=== PATIENT | female | born 1955 | race Caucasian/White ===

== ENCOUNTER 2018-02-03 12:15 | Observation (INO) ==
[2018-02-03] MEDS ORDERED: ALBUTEROL 2.5mg/3ml (0.083%) NEB AEROSOL PRN (12:51)
--- NOTE | 2018-02-03 12:55 | Family Practice History&Phys ---
History of Present Illness Chief complaint: Chest pain shortness of breath HPI: Then having an exacerbation of her COPD for about three weeks. She was treated with Zithromax initially and then recently with Levaquin for seven days and Solu -Medrol times one. She is only had two doses of Levaquin. She reports last night she started having chest pain that is feels like a heavyweight sitting on her chest. She has never had a heart attack before. She has had this feeling before when she had pneumonia in the past. EKG was done at the clinic and it was normal sinus rhythm with no concerning findings. Exam - Constitutional no acute distress - Routine HEENT Exam Head: Present: normocephalic Eye: Present: PERRL ENT: Present: mucous membranes moist - Routine Neck Exam Present: supple - Routine Chest/Breast/Axilla Exam Comments: Poor air movement posteriorly. She is not in respiratory distress. She has a normal oxygen saturation at 96%. - Routine Respiratory Exam Comments: Poor air movement. No wheezing. Not in respiratory distress. - Routine Cardiovascular Exam Present: RRR - Routine Abdominal Exam Present: soft, non distended - Routine Extremities Exam Present: no edema Results - Labs All other labs normal. Assessment and Plan - Assessment and Plan (1) COPD with acute exacerbation Status: Acute (2) Acute bronchitis Status: Acute Will start on IV Solu-Medrol, oral Levaquin continued. Start Zithromax. We use Duoneb nebulized. Observe for 24 hours. IV fluids.
--- OUTSIDE RECORDS SUMMARY | 2018-02-03 13:58 | External Medical Summary | Clinical Summary ---
:1955 Author Organization [facility] Address [address] [place] [address] Care Team Providers Name Role Phone Unassigned, None Primary Care Provider Unavailable Allergies No Known Allergies Current Medications Prescription Sig. Disp. Refills Start Date End Date Status naproxen (ANAPROX) 220 MG Take 220 mg by Active tablet mouth 2 (two) times daily with meals. Active Problems No known active problems Social History Tobacco Use Types Packs/Day Years Used Date Current Every Day Smoker Cigarettes 1 Sex Assigned at Date Recorded Not on file Last Filed Vital Signs Vital Sign Reading Time Taken Blood Pressure 118/78 09/05/2013 10:12 AM [facility] Pulse - - Temperature - - Respiratory Rate - - Oxygen Saturation - - Inhaled Oxygen Concentration - - Weight 52.2 kg (115 lb) 09/05/2013 10:12 AM [facility] Height 165.1 cm (5' 5") 09/05/2013 10:12 AM [facility] Body Mass Index 19.14 09/05/2013 10:12 AM [facility] Plan of Treatment Health Maintenance Due Date Last Done Comments Hepatitis C Screening 1955 DTaP,Tdap,and Td Vaccines (1 - Tdap) 1973 CERVICAL CANCER SCREENING 1975 Breast Cancer Screening-Mammogram 2004 Colon Cancer Screening 2004 Zoster Recombinant Vaccine (RZV,Shingrix) (1 of 2 - [facility] 2004 2 Dose Standard) Results Not on filefrom Last 3 Months
[2018-02-03 14:11] VITALS: BMI 20.1
[2018-02-03] MEDS: D5-1/2NS 1,000 ML IV SCH ×2 (14:46→23:55)
--- NOTE | 2018-02-03 17:17 | XRay Report ---
INDICATION: sob PROCEDURE: CHEST 2-VIEWS UPRIGHT (PA & LAT) Encounter: Initial COMPARISON: None FINDINGS: 1.6 cm calcified granuloma in the anterior right upper lobe. Lungs are otherwise clear. Hyperinflation. There is no pleural effusion or pneumothorax. Surgical clips in both axillary regions. Calcified right hilar node. The heart size, mediastinal contours and pulmonary vascularity are within normal limits. There is no significant skeletal abnormality. IMPRESSION: No acute cardiopulmonary disease. Evidence of prior granulomatous disease and COPD. .
[2018-02-03] MEDS: ALBUTEROL/IPRATROPIUM 2.5mg-0.5mg/3ml NEB AEROSOL SCH ×2 (19:37→20:49)
[2018-02-03] MEDS: METHYLPREDNISOLONE SOD SUCC 125mg/2ml INJECTION IVP SCH (22:47)
[2018-02-03] MEDS ORDERED: ACETAMINOPHEN 325 MG TABLET PO PRN (23:49)
[2018-02-04] MEDS ORDERED: LORATADINE ODT 10 MG TABLET PO SCH (06:30)
--- NOTE | 2018-02-04 06:37 | Family Practice Progress Note ---
Progress Note-A&P - Time Spent With Patient Total time spent is greater than 50% in coordination of care (as documented) at patient's floor/unit and/or counseling patient: (1) COPD with acute exacerbation Status: Acute Assessment and plan: Much improved today. Considering discharge. I'm going to see how she's doing a little later this morning. Current Visit: No (2) Acute bronchitis Status: Acute Assessment and plan: Improved. Current Visit: No Subjective - Subjective Principal diagnosis: bronchitis Interval history: She reports that she feels much better today. Her strength is better. Her breathing is better. She is not coughing as much. The last time she chilled was yesterday. Her appetite is improved. She denies diarrhea. Exam Vital signs: Temperature 97.8 F 02/04/18 04:00 Pulse Rate 56 L 02/04/18 04:00 Respiratory Rate 18 02/04/18 04:00 Blood Pressure 121/72 02/04/18 04:00 Pulse Oximetry 95 02/04/18 04:00 Inpatient Medications: Generic Name Dose Route Start Last Admin Trade Name Freq PRN Reason Stop Dose Admin Acetaminophen 325 mg 02/03/18 23:49 02/03/18 23:53 Tylenol PO 325 mg Q5H PRN Administration Discomfort Albuterol Sulfate 2.5 mg 02/03/18 12:51 Proventil Neb (0.083%) AEROSOL RTQID PRN Albuterol/Ipratropium 3 ml 02/03/18 15:00 02/03/18 20:49 Duoneb AEROSOL 3 ml RTQID JAYCOB Administration Aspirin 81 mg 02/04/18 09:00 Asa PO DAILY JAYCOB Duloxetine HCl 30 mg 02/04/18 09:00 Cymbalta PO DAILY JAYCOB Dextrose/Sodium Chloride 1,000 mls @ 100 mls/hr 02/03/18 12:45 02/03/18 23:55 D5-1/2ns IV 100 mls/hr .Q10H JAYCOB Administration Levofloxacin 500 mg 02/04/18 09:00 Levaquin PO DAILY JAYCOB Loratadine 10 mg 02/04/18 06:30 Claritin Redi-Tab PO ACB JAYCOB Methylprednisolone Sodium Succinate 125 mg 02/03/18 21:00 02/03/18 22:47 Solu-Medrol IVP 125 mg Q12HR JAYCOB Administration Varenicline 1 mg 02/04/18 09:00 Chantix PO BID JAYCOB - Constitutional no acute distress - Routine HEENT Exam Head: Present: normocephalic, atraumatic Eye: Present: EOMI - Routine Neck Exam Present: supple - Routine Respiratory Exam Present: CTA bilaterally Comments: Air movement is much improved today. No crackles are wheezes - Routine Cardiovascular Exam Present: RRR - Routine Abdominal Exam Present: soft - Routine Extremities Exam Present: no edema
[2018-02-04 07:48] VITALS: BP 121/71; PULSE 60; TEMP 97.5
[2018-02-04] MEDS: ALBUTEROL/IPRATROPIUM 2.5mg-0.5mg/3ml NEB AEROSOL SCH (08:30)
[2018-02-04 08:41] VITALS: RESP 22; O2SAT 97
[2018-02-04] MEDS ORDERED: LEVOFLOXACIN 500 MG TABLET PO SCH (09:00)
[2018-02-04] MEDS ORDERED: DULOXETINE 30 MG CAPSULE PO SCH (09:00)
[2018-02-04] MEDS ORDERED: VARENICLINE 1 MG TABLET PO SCH (09:00)
[2018-02-04] MEDS ORDERED: ASPIRIN 81 MG CHEWABLE TABLET PO SCH (09:00)
[2018-02-04] MEDS: METHYLPREDNISOLONE SOD SUCC 125mg/2ml INJECTION IVP SCH (09:33)
[2018-02-04] MEDS: D5-1/2NS 1,000 ML IV SCH (10:54)
[2018-02-05] MEDS ORDERED: LORATADINE 10 MG TABLET PO SCH (07:30)
== END 2018-02-04 11:20 | disposition home or self-care (01) ==
LOC: MED
PROVIDERS: ADMIT Family Medicine; ATTEND Family Medicine